=== PATIENT | female | born 1990 | race Caucasian/White ===

== ENCOUNTER 2016-09-13 18:06 | Emergency (ER) | payer MEDICAID ==
--- NOTE | 2016-09-13 18:15 | ER Document Report ---
ED Medical Screen (RME) - General Stated Complaint: BACK PAIN Mode of Arrival: Ambulatory Information source: Patient Notes: Patient presents to the emergency department with right flank pain that radiates to her periumbilical area past 3 months. Reports urinary frequency. Reports history of kidney infections. Reports vomited 2 x today. Denies f/d. No pain on palpation of her abdomen but she does complain of pain with right flank. TRAVEL OUTSIDE OF THE [place] IN LAST 30 DAYS: No - Related Data Allergies/Adverse Reactions: Penicillins Adverse Reaction (Mild, Verified 10/17/15 11:37) Past Medical History - Immunizations Immunizations up to date: Yes Hx Diphtheria, Pertussis, Tetanus Vaccination: Yes
[2016-09-13 18:30] LABS: ABSOLUTE BASOPHILS # (AUTO) 0.1 10^3/uL (0.0-0.2); ABSOLUTE EOSINOPHILS # (AUTO) 0.1 10^3/uL (0.0-0.6); ABSOLUTE LYMPHOCYTES (AUTO) 2.2 10^3/uL (0.5-4.7); ABSOLUTE MONOCYTES (AUTO) 0.5 10^3/uL (0.1-1.4); ABSOLUTE NEUT (AUTO) 5.4 10^3/uL (1.7-8.2); BASOPHILS % (AUTO) 0.7 % (0-2); EOSINOPHILS % (AUTO) 1.8 % (0-6); HEMATOCRIT 36.5 % (36.0-47.0); HEMOGLOBIN 12.7 g/dL (12.0-15.5); HGB HCT DIFFERENCE 1.6; LYMPHOCYTES % (AUTO) 26.2 % (13-45); MEAN CORPUSCULAR HEMOGLOBIN 30.8 pg (27.0-33.4); MEAN CORPUSCULAR HGB CONC 34.8 g/dL (32.0-36.0); MEAN CORPUSCULAR VOLUME 89 fl (80-97); MONOCYTES % (AUTO) 6.1 % (3-13); RED BLOOD COUNT 4.12 10^6/uL (3.72-5.28); RED CELL DISTRIBUTION WIDTH 13.6 % (11.5-14.0); SEGMENTED NEUTROPHILS % (AUTO) 65.2 % (42-78); WHITE BLOOD COUNT 8.2 10^3/uL (4.0-10.5)
[2016-09-13 18:37] LABS: APPEARANCE,URINE SLIGHTLY-CLOUDY; BILIRUBIN,URINE NEGATIVE (NEGATIVE); GLUCOSE, URINE NEGATIVE (NEGATIVE); KETONES,URINE NEGATIVE (NEGATIVE); LEUKOCYTE ESTERASE,URINE TRACE (NEGATIVE); NITRITE,URINE NEGATIVE (NEGATIVE); PROTEIN,URINE NEGATIVE (NEGATIVE); URINE SPECIFIC GRAVITY 1.014; UROBILINOGEN,URINE NEGATIVE mg/dL (<2.0)
[2016-09-13 18:44] LABS: ALANINE AMINOTRANSFERASE 57 U/L (9-52); ALBUMIN 4.4 g/dL (3.5-5.0); ALKALINE PHOSPHATASE 50 U/L (38-126); ANION GAP 11 (5-19); ASPARTATE AMINO TRANSFERASE 27 U/L (14-36); BILIRUBIN,TOTAL 0.6 mg/dL (0.2-1.3); BLOOD UREA NITROGEN 16 mg/dL (7-20); CALCIUM 9.5 mg/dL (8.4-10.2); CARBON DIOXIDE 25 mmol/L (22-30); CHLORIDE 104 mmol/L (98-107); CREATININE RESULT 0.61 mg/dL (0.52-1.25); GLUCOSE 90 mg/dL (75-110); POTASSIUM 4.3 mmol/L (3.6-5.0); SODIUM 139.7 mmol/L (137-145); TOTAL PROTEIN 7.9 g/dL (6.3-8.2)
[2016-09-13] MEDS ORDERED: LIDOCAINE 5% (700 MG) TRANSDERMAL ADH..PATCH TP ONE (20:13)
[2016-09-13] MEDS ORDERED: IBUPROFEN 600 MG TABLET PO ONE (20:13)
--- NOTE | 2016-09-13 20:20 | ER Document Report ---
ED General - General Chief Complaint: Flank Pain Stated Complaint: BACK PAIN Mode of Arrival: Ambulatory Notes: Patient is a 26-year-old female with a history of methadone dependence and chronic pain who presents with 3 months of intermittent right flank pain. Does describe the pain as intermittent, sharp, stabbing pain. Nothing triggers the pain and it does resolve spontaneously. States she's had similar symptoms in the past with "kidney infections". Denies any dysuria, hematuria, or urinary frequency. She has not seeing her primary care physician regarding today's concerns. Denies any associated fever, vomiting, or fatigue. No focal abdominal pain. TRAVEL OUTSIDE OF THE [place] IN LAST 30 DAYS: No - Related Data Allergies/Adverse Reactions: Penicillins Adverse Reaction (Mild, Verified 09/13/16 18:13) Past Medical History - General Information source: Patient - Social History Smoking Status: Current Every Day Smoker Chew tobacco use (# tins/day): No Frequency of alcohol use: None Drug Abuse: Prescription drugs Family History: Reviewed & Not Pertinent Patient has suicidal ideation: No Patient has homicidal ideation: No Renal/ Medical History: Denies: Hx Peritoneal Dialysis - Immunizations Immunizations up to date: Yes Hx Diphtheria, Pertussis, Tetanus Vaccination: Yes Review of Systems - Review of Systems Notes: Constitutional: Negative for fever. HENT: Negative for sore throat. Eyes: Negative for visual changes. Cardiovascular: Negative for chest pain. Respiratory: Negative for shortness of breath. Gastrointestinal: Negative for abdominal pain, vomiting or diarrhea. Positive for right flank pain Genitourinary: Negative for dysuria. Musculoskeletal: Negative for back pain. Skin: Negative for rash. Neurological: Negative for headaches, weakness or numbness. 10 point ROS negative except as marked above and in HPI. Physical Exam - Vital signs Interpretation: Normal Notes: PHYSICAL EXAMINATION: GENERAL: Well-appearing, well-nourished and in no acute distress. HEAD: Atraumatic, normocephalic. EYES: Pupils equal round and reactive to light, extraocular movements intact, sclera anicteric, conjunctiva are normal. ENT: nares patent, oropharynx clear without exudates. Moist mucous membranes. NECK: Normal range of motion, supple without lymphadenopathy LUNGS: Breath sounds clear to auscultation bilaterally and equal. No wheezes rales or rhonchi. HEART: Regular rate and rhythm without murmurs ABDOMEN: Soft, nontender, normoactive bowel sounds. No guarding, no rebound. No masses appreciated. Right CVA tenderness. EXTREMITIES: Normal range of motion, no pitting or edema. No cyanosis. NEUROLOGICAL: No focal neurological deficits. Moves all extremities spontaneously and on command. PSYCH: Normal mood, normal affect. SKIN: Warm, Dry, normal turgor, no rashes or lesions noted. Course - Re-evaluation Re-evalutation: 09/13/16 20:14 Patient presents with 3 months of intermittent right flank pain. Her clinical history and exam does not appear consistent with nephrolithiasis or an acute pyelonephritis. She has no focal abdominal tenderness to suggest an acute appendicitis, ovarian torsion, tubo-ovarian abscess. Her clinical history of 3 months of intermittent symptoms likewise is not consistent with the above diagnoses. Laboratories including a urinalysis and tests are all negative here. Her urine has been sent for culture to ensure that there is no occult infection. I recommended a conservative management as well as primary care follow-up. At this time will discharge with return precautions and follow- up recommendations. Verbal discharge instructions given a the bedside and opportunity for questions given. Medication warnings reviewed. Patient is in agreement with this plan and has verbalized understanding of return precautions and the need for primary care follow-up in the next 24-72 hours. - Laboratory Result Diagrams: 09/13/16 18:15 09/13/16 18:15 Laboratory results interpreted by me: 09/13/16 09/13/16 18:15 18:15 ALT 57 H Ur Leukocyte Esterase TRACE H Discharge - Discharge Clinical Impression: Chronic right flank pain Condition: Good Disposition: HOME, SELF-CARE Additional Instructions: Please follow-up with her primary care doctor in the next several days. Return if worsening pain, fever greater than 101F, pass out, began vomiting, or have any other symptoms that are worrisome to you.
== END 2016-09-13 20:33 | disposition home or self-care (01) ==
LOC: ER 18:06
DX: G89.29 Other chronic pain (principal); R10.9 Unspecified abdominal pain; M54.9 Dorsalgia, unspecified; F11.99 Opioid use, unspecified with unspecified opioid-induced disorder
CPT/HCPCS: 36415; 80053; 81001; 84703; 85025; 87086; 99284

== ENCOUNTER 2017-02-09 17:54 | Emergency (ER) | payer SELFPAY ==
[2017-02-09] MEDS ORDERED: METOCLOPRAMIDE HCL 10 MG TABLET PO ONE (19:20)
--- NOTE | 2017-02-09 19:21 | ER Document Report ---
ED Medical Screen (RME) - General Chief Complaint: Abdominal Pain Stated Complaint: ABDOMINAL PAIN Time Seen by Provider: 02/09/17 19:17 Notes: This 26-year-old female patient comes emergency room complaining of a one-month history of nausea, fatigue, cramping. She reports she began vomiting today and has vomited 3-4 times. LMP was 11/19/2016, but her periods are quite irregular so she does not know if she is . She did not try getting a test from the grocery store or drugstore to check for herself. I have greeted and performed a rapid initial assessment of this patient. A comprehensive ED assessment and evaluation of the patient, analysis of test results and completion of the medical decision making process will be conducted by additional ED providers. TRAVEL OUTSIDE OF THE [place] IN LAST 30 DAYS: No - Related Data Allergies/Adverse Reactions: Penicillins Adverse Reaction (Mild, Verified 02/09/17 18:29) Past Medical History Renal/ Medical History: Denies: Hx Peritoneal Dialysis - Immunizations Immunizations up to date: Yes Hx Diphtheria, Pertussis, Tetanus Vaccination: Yes Physical Exam - Vital signs Vitals: Temp Pulse Resp BP Pulse Ox 97.6 F 87 16 123/71 100 02/09/17 18:22 02/09/17 18:22 02/09/17 18:22 02/09/17 18:22 02/09/17 18:22 Course - Vital Signs Vital signs: Temp Pulse Resp BP Pulse Ox 97.6 F 87 16 123/71 100 02/09/17 18:22 02/09/17 18:22 02/09/17 18:22 02/09/17 18:22 02/09/17 18:22
[2017-02-09 20:18] LABS: APPEARANCE,URINE SLIGHTLY-CLOUDY; BILIRUBIN,URINE NEGATIVE (NEGATIVE); GLUCOSE, URINE NEGATIVE (NEGATIVE); KETONES,URINE NEGATIVE (NEGATIVE); LEUKOCYTE ESTERASE,URINE TRACE (NEGATIVE); NITRITE,URINE NEGATIVE (NEGATIVE); PROTEIN,URINE NEGATIVE (NEGATIVE); URINE SPECIFIC GRAVITY 1.024
--- NOTE | 2017-02-09 23:39 | ER Document Report ---
ED General - General Chief Complaint: Abdominal Pain Stated Complaint: ABDOMINAL PAIN Time Seen by Provider: 02/09/17 19:17 Notes: Patient is a 26-year-old female who presents with complaint of some mild intermittent lower abdominal cramping as well as some nausea and occasional vomiting for 1 month. Her last menstrual period was in November. She says her menstrual periods are usually regular. She has had no abnormal vaginal discharge. No fevers. No other complaints at this time. She has not checked a test. She currently is pain-free. TRAVEL OUTSIDE OF THE [place] IN LAST 30 DAYS: No - Related Data Allergies/Adverse Reactions: Penicillins Adverse Reaction (Mild, Verified 02/09/17 18:29) Past Medical History - Social History Smoking Status: Current Every Day Smoker Frequency of alcohol use: None Drug Abuse: None Family History: Reviewed & Not Pertinent Patient has suicidal ideation: No Patient has homicidal ideation: No Renal/ Medical History: Denies: Hx Peritoneal Dialysis - Immunizations Immunizations up to date: Yes Hx Diphtheria, Pertussis, Tetanus Vaccination: Yes Review of Systems - Review of Systems Notes: My Normal Review Basic REVIEW OF SYSTEMS: CONSTITUTIONAL : Denies fever, chills, or sweats. Denies recent illness. EENT: Denies eye, ear, throat, or mouth pain or symptoms. Denies nasal or sinus congestion. RESPIRATORY: Denies cough, cold, or chest congestion. Denies shortness of breath, difficulty breathing, or wheezing. GASTROINTESTINAL: suprapubic cramping. Denies nausea, vomiting, or diarrhea. GENITOURINARY: Denies difficulty urinating, painful urination, burning, frequency, or blood in urine. FEMALE GENITOURINARY: Denies vaginal bleeding, abnormal or irregular periods. LMP: May MUSCULOSKELETAL: Denies neck or back pain or joint pain or swelling. SKIN: Denies rash or skin lesions. NEUROLOGICAL: Denies altered mental status or loss of consciousness. Denies headache. Denies weakness or paralysis or loss of use of either side. Denies problems with gait or speech. Denies sensory or motor loss. ALL OTHER SYSTEMS REVIEWED AND NEGATIVE. Physical Exam - Vital signs Vitals: Temp Pulse Resp BP Pulse Ox 97.6 F 87 16 123/71 100 02/09/17 18:22 02/09/17 18:22 02/09/17 18:22 02/09/17 18:22 02/09/17 18:22 - Notes Notes: General Appearance: Well nourished, alert, cooperative, no acute distress, no obvious discomfort. Well appearing. Vitals: reviewed, See vital signs table. Head: no swelling or tenderness to the head Eyes: PERRL, EOMI, Conjuctiva clear Lungs: No wheezing, No rales, No rhonci, No accessory muscle use, good air exchange bilaterally. Heart: Normal rate, Regular rythm, No murmur, no rub Abdomen: Normal BS, soft, No rigidity, No abdominal tenderness, No guarding, no rebound, no abdominal masses, no organomegaly Extremities: strength 5/5 in all extremities, good pulses in all extremities, no swelling or tenderness in the extremities, no edema. Skin: warm, dry, appropriate color, no rash Neuro: speech clear, oriented x 3, normal affect, responds appropriately to questions. Course - Re-evaluation Re-evalutation: 02/10/17 06:36 Patient's symptoms are likely related to her . I will place on Reglan. I did do bedside ultrasound showed all a pole in the uterus. Cannot yet see a heart rate. I gave her information for women's health for follow-up. I will also write prescription for vitamins and Reglan. Patient encouraged to return to ER if she has any recurrent pain, any vaginal bleeding, fevers, or feels unwell. - Vital Signs Vital signs: Temp Pulse Resp BP Pulse Ox 98.0 F 85 16 120/68 100 02/09/17 23:46 02/09/17 23:46 02/09/17 23:46 02/09/17 23:46 02/09/17 23:46 - Laboratory Laboratory results interpreted by me: 02/09/17 02/09/17 19:47 19:47 Urine Urobilinogen 2.0 H Ur Leukocyte Esterase TRACE H Urine HCG, Qual POSITIVE H Discharge - Discharge Clinical Impression: Qualifiers: Weeks of gestation: less than 8 weeks Qualified Code(s): Z3A.01 - Less than 8 weeks gestation of Vomiting Qualifiers: Vomiting type: unspecified Vomiting Intractability: non-intractable Nausea presence: with nausea Qualified Code(s): R11.2 - Nausea with vomiting, unspecified Condition: Good Disposition: HOME, SELF-CARE Additional Instructions: You are . This is likely what is causing your nausea for the last month as well as your intermittent cramping. Please take vitamins. Please take the nausea medicine as prescribed. Please return to the ER immediately if you have abdominal pain that is worsening, any vaginal bleeding or abnormal discharge, fevers, or if you feel unwell in any way. Please call the women's health clinic ( Dr. Willson) to make a close follow-up appointment. Prescriptions: Metoclopramide HCl [Reglan 10 mg Tablet] 1 tab PO ASDIR PRN #25 tablet PRN Reason: Vit W-Ca,Fe,FA(<1 mg) [ Vitamins] 1 each PO DAILY #30 tablet Referrals: CARMEN WILLSON MD [ACTIVE STAFF] - Follow up in 3-5 days
[2017-02-10 00:40] VITALS: BP 120/68
== END 2017-02-09 23:46 | disposition home or self-care (01) ==
LOC: ER 17:54
DX: O21.9 Vomiting of pregnancy, unspecified (principal); O26.891 Other specified pregnancy related conditions, first trimester; R10.30 Lower abdominal pain, unspecified; O99.331 Smoking (tobacco) complicating pregnancy, first trimester; Z3A.01 Less than 8 weeks gestation of pregnancy
CPT/HCPCS: 81001; 81025; 99284

== ENCOUNTER → 2017-02-23 | Outpatient (CLI) | payer SELFPAY ==
--- NOTE | 2017-02-23 16:03 | RADIOLOGY REPORT (SQ) ---
EXAM DESCRIPTION: U/S [id number] TRNABD 1GES W/ODOP COMPLETED DATE/TIME: 02/23/2017 3:35 pm REASON FOR STUDY: ENCOUNTER FOR SUPERVISION OF OTHER NORMAL , FIRST TRIMESTER Z34.81 ENCOU NTER FOR SUPRVSN OF NORMAL , FIRST TRIM COMPARISON: None. TECHNIQUE: Transabdominal static and realtime grayscale images acquired of the pelvis. Additional se lected spectral and color Doppler images recorded. All images stored on PACs. bHCG: Not available. LIMITATIONS: None. FINDINGS: FETUS: Living intrauterine . EGA: 9 weeks 3 days DAVID: 09/25/2017 FHR: 173 beats per minute. SUBCHORIONIC BLEED: No. SIZE OF BLEED: Not applicable. UTERUS: No masses. No anomalies. CERVICAL LENGTH: 2.9 cm. Closed. RIGHT ADNEXA: Normal ovary with normal vascular flow. No adnexal free fluid. No adnexal masses. LEFT ADNEXA: Normal ovary with normal vascular flow. No adnexal free fluid. No adnexal masses. FREE FLUID: None. OTHER: No other significant finding. IMPRESSION: LIVING INTRAUTERINE . EGA 9 weeks 3 days. Trimester of : First - 0 to 13 weeks. TECHNICAL DOCUMENTATION: JOB ID: [id number] [employer]- All Rights Reserved
== END ==
LOC: RAD 14:50
PROVIDERS: ATTEND Nurse Practitioner Women's Health
DX: Z34.81 Encounter for supervision of other normal pregnancy, first trimester (principal)
CPT/HCPCS: 76801

== ENCOUNTER 2017-09-01 11:54 | Outpatient (CLI) | payer MEDICAID ==
--- NOTE | 2017-09-01 12:29 | Non Stress Test Report ---
Non Stress Test Datetime Report Generated by CPN: 09/01/2017 12:29 DEMOGRAPHIC EGA NST: 36.4 INDICATION Indication for Study: Ordered by Provider MONITORING Monitor Explained: Monitor Explained; Test Explained; Patient Verbalized Understanding Time on Monitor: 09/01/2017 12:04 Time off Monitor: 09/01/2017 12:25 NST Duration: 21 NST INTERVENTIONS NST Interventions: PO Hydration; Reposition Patient Physician Notified NST: J Nichole CNM BABY A: [id number] BABY A Movement : Present Contraction Frequency : irr FHR Baseline : 120 Accelerations : 15X15 Decelerations : None Variability : Moderate 6-25bpm NST Review: Meets Criteria for Reactive NST NST Review and Verified By : Yesika Cartagena RNC NST Results: Reactive NST REPORT Report Trigger: Send Report
== END 2017-09-01 12:30 | disposition home or self-care (01) ==
LOC: LC 11:54
PROVIDERS: ATTEND Obstetrics & Gynecology
PROC: 4A1HXCZ Monitoring of Products of Conception, Cardiac Rate, External Approach (ICD-10-PCS; principal; 2017-09-01)
DX: O47.03 False labor before 37 completed weeks of gestation, third trimester (principal); Z3A.36 36 weeks gestation of pregnancy
CPT/HCPCS: 59025

== ENCOUNTER 2017-09-08 10:48 | Outpatient (CLI) | payer MEDICAID ==
--- NOTE | 2017-09-08 11:33 | Non Stress Test Report ---
Non Stress Test Datetime Report Generated by CPN: 09/08/2017 11:33 DEMOGRAPHIC EGA NST: 37.4 INDICATION Indication for Study: Other Indication for Study (NST) Other: methadone use MONITORING Monitor Explained: Monitor Explained; Test Explained; Patient Verbalized Understanding Time on Monitor: 09/08/2017 10:58 Time off Monitor: 09/08/2017 11:19 NST Duration: 21 NST INTERVENTIONS NST Interventions: Reposition Patient BABY A: [id number] BABY A Movement : Present Contraction Frequency : 10 FHR Baseline : 120 Accelerations : 15X15 Decelerations : None Variability : Moderate 6-25bpm NST Review: Meets Criteria for Reactive NST NST Review and Verified By : D Bellavance RNC NST Results: Reactive NST REPORT Report Trigger: Send Report
== END 2017-09-08 11:21 | disposition home or self-care (01) ==
LOC: LC 10:48
PROVIDERS: ATTEND Student in an Organized Health Care Education/Training Program
PROC: 4A1HXCZ Monitoring of Products of Conception, Cardiac Rate, External Approach (ICD-10-PCS; principal; 2017-09-08)
DX: O99.323 Drug use complicating pregnancy, third trimester (principal); F11.90 Opioid use, unspecified, uncomplicated; Z3A.37 37 weeks gestation of pregnancy
CPT/HCPCS: 59025

== ENCOUNTER 2017-09-26 09:30 | Outpatient (CLI) | payer MEDICAID | END 2017-09-26 10:23 | disposition home or self-care (01) | LOC: LC 09:30 | PROVIDERS: ATTEND Obstetrics & Gynecology Gynecology | PROC: 4A1HXCZ Monitoring of Products of Conception, Cardiac Rate, External Approach (ICD-10-PCS; principal; 2017-09-26) | DX: O99.323 Drug use complicating pregnancy, third trimester (principal); F11.90 Opioid use, unspecified, uncomplicated; O48.0 Post-term pregnancy; Z3A.40 40 weeks gestation of pregnancy | CPT/HCPCS: 59025 ==

== ENCOUNTER 2017-09-27 06:52 | Inpatient (IN) | payer MEDICAID ==
[2017-09-27] MEDS ORDERED: RINGERS SOLUTION,LACTATED 300 ML IV ONE (08:17)
[2017-09-27] MEDS ORDERED: OXYTOCIN/NORMAL SALINE 20 UNIT/1,000 ML RTUINJ IV PRN ×3 (08:17→14:22)
[2017-09-27] MEDS ORDERED: MISOPROSTOL 0.2 MG TABLET ONE (08:41)
[2017-09-27] MEDS ORDERED: OXYTOCIN/NORMAL SALINE 20 UNIT/1,000 ML RTUINJ ONE (08:42)
[2017-09-27] MEDS ORDERED: LIDOCAINE 1% INJ-PF (10 MG/ML) 30 ML SDV ONE (08:42)
[2017-09-27 08:48] LABS: APPEARANCE,URINE CLEAR; BILIRUBIN,URINE NEGATIVE (NEGATIVE); COLOR,URINE YELLOW; GLUCOSE, URINE NEGATIVE (NEGATIVE); KETONES,URINE NEGATIVE (NEGATIVE); LEUKOCYTE ESTERASE,URINE TRACE (NEGATIVE); NITRITE,URINE NEGATIVE (NEGATIVE); PROTEIN,URINE NEGATIVE (NEGATIVE); URINE SPECIFIC GRAVITY 1.012; UROBILINOGEN,URINE NEGATIVE mg/dL (<2.0)
[2017-09-27 09:05] LABS: ABSOLUTE BASOPHILS # (AUTO) 0.1 10^3/uL (0.0-0.2); ABSOLUTE EOSINOPHILS # (AUTO) 0.2 10^3/uL (0.0-0.6); ABSOLUTE LYMPHOCYTES (AUTO) 3.2 10^3/uL (0.5-4.7); ABSOLUTE MONOCYTES (AUTO) 0.7 10^3/uL (0.1-1.4); BASOPHILS % (AUTO) 0.8 % (0-2); EOSINOPHILS % (AUTO) 1.9 % (0-6); HEMATOCRIT 35.3 % (36.0-47.0); HEMOGLOBIN 12.3 g/dL (12.0-15.5); LYMPHOCYTES % (AUTO) 34.8 % (13-45); MEAN CORPUSCULAR HEMOGLOBIN 31.7 pg (27.0-33.4); MEAN CORPUSCULAR HGB CONC 34.7 g/dL (32.0-36.0); MEAN CORPUSCULAR VOLUME 91 fl (80-97); MONOCYTES % (AUTO) 7.4 % (3-13); PLATELET COUNT 234 10^3/uL (150-450); RED BLOOD COUNT 3.87 10^6/uL (3.72-5.28); RED CELL DISTRIBUTION WIDTH 13.2 % (11.5-14.0); SEGMENTED NEUTROPHILS % (AUTO) 55.1 % (42-78); TOTAL CELLS COUNTED % (AUTO) 100 %; WHITE BLOOD COUNT 9.1 10^3/uL (4.0-10.5)
[2017-09-27 09:06] LABS: URINE AMPHETAMINES SCREEN NEGATIVE; URINE BARBITURATES SCREEN NEGATIVE; URINE BENZODIAZEPINES SCREEN NEGATIVE; URINE COCAINE SCREEN NEGATIVE; URINE MARIJUANA (THC) SCREEN NEGATIVE; URINE PHENCYCLIDINE SCREEN NEGATIVE
[2017-09-27 09:11] LABS: URINE METHADONE SCREEN UNCONFIRMED POSITIVE
[2017-09-27] MEDS ORDERED: EPHEDRINE SULFATE INJ 50 MG/1 ML AMPULE ONE (09:18)
[2017-09-27] MEDS ORDERED: BUPIVACAINE HCL 0.25 % INJ/PF (2.5 MG/1 ML) 30 ML VIAL ONE (09:18)
[2017-09-27] MEDS ORDERED: FENTANYL/BUPIVACAINE/NS/PF 200 MCG/100 ML RTUINJ EPI ONE (09:18)
[2017-09-27] MEDS: RINGERS SOLUTION,LACTATED 1,000 ML IV PRN ×3 (10:24→14:52)
[2017-09-27] MEDS ORDERED: DIPHENHYDRAMINE HCL 25 MG CAPSULE PO PRN (14:22)
[2017-09-27] MEDS ORDERED: PROMETHAZINE HCL INJ 25 MG/1 ML VIAL IV PRN (14:22)
[2017-09-27] MEDS ORDERED: BENZOCAINE/MENTHOL AEROSOL SPRAY 56 ML TOP PRN (14:22)
[2017-09-27] MEDS ORDERED: NA PHOS,M-B/NA PHOS,DI-BA (ADULT) 133 ML ENEMA PR PRN (14:22)
[2017-09-27] MEDS ORDERED: PROMETHAZINE HCL 25 MG TABLET PO PRN (14:22)
[2017-09-27] MEDS ORDERED: MAGNESIUM HYDROXIDE SUSP 30 ML UDCUP PO PRN (14:22)
[2017-09-27] MEDS ORDERED: DIBUCAINE 1% OINTMENT 28 GM TP PRN (14:22)
[2017-09-27] MEDS ORDERED: DIPH/PERTUSS(ACELL)/TETANUS VAC/PF 0.5 ML SYR (>=10YO) IM PRN (14:22)
[2017-09-27] MEDS ORDERED: GLYCERIN/WITCH HAZEL LEAF 1 EACH MED..PAD TP PRN (14:22)
[2017-09-27] MEDS ORDERED: PROMETHAZINE HCL 25 MG SUPP.RECT PR PRN (14:22)
[2017-09-27] MEDS ORDERED: MEASLES,MUMPS&RUBELLA VACC/PF 0.5 ML VIAL SUBCUT PRN (14:22)
[2017-09-27] MEDS ORDERED: PSEUDOEPHEDRINE HCL 30 MG TABLET PO PRN (14:22)
--- NOTE | 2017-09-27 14:29 | Warning Signs in Babies ---
VOD Warning Signs Datetime Report Generated by N: 09/27/2017 14:28 VOD#608 -Warning Signs in Babies: Viewed with Parent(s)/Family (09/27/2017 14:23:Reta Ahumada RN)
--- NOTE | 2017-09-27 17:57 | Delivery Summary ---
Del Sum A-C Datetime Report Generated by CPN: 09/27/2017 17:56 DELIVERY PERSONNEL DELIVERY PERSONNEL: [id number] Delivery Doctor:: Linda Menjivar CNM Nurse Terrazzo Polisher Helper Certified:: Linda Menjivar CNM Labor and Delivery Nurse:: Reta Ahumada RNhealthcare technician Nurse:: PATRIC Coon Maintenance Mechanic Millwright:: Reta Ahumada RN Nursery Nurse:: Sheela Grayson RN Student Observers:: [facility] Assistant Surveyor/ROAD BOSS: Jyoti Davies CNA II MATERNAL INFORMATION Delivery Anesthesia: Epidural Medications After Delivery: Pitocin Bolus-Please Comment Meds After Delivery Comment: 20 units in 1000 ml bolusing after delivery of placenta Maternal Complications: Other Other Maternal Complications: hep c/post term/hx drug abuse on methadone Provider Comments: MARISA VIABLE FEMALE WITH SPONTANEOUS CRY. CORD DOUBLE CLAMPED AND CUT. SPONTANEOUS PLACENTA INTACT WITH 3VC. NO LACERATIONS LABOR SUMMARY EDC: 09/25/2017 00:00 No. Babies in Womb: 1 Attempted: No Labor Anesthesia: Epidural LABOR INFORMATION Reason for Induction: Postterm Reason for Induction- Other: hep c hx drug abuse with methadone use Onset of Labor: 09/27/2017 10:00 Complete Dilatation: 09/27/2017 13:59 Oxytocin: Induction Group B Beta Strep: neg Antibiotics # of Doses: 0 Antibiotics Time of Last Dose: n/a Name of Antibiotic Given: n/a Steroids Given: None Reason Steroids Not Administered: Not Applicable MEMBRANES Membranes Rupture Method: Artificial Rupture of Membranes: 09/27/2017 10:22 Length of Rupture (hr): 3.78 Amniotic Fluid Color: Clear Amniotic Fluid Amount: Moderate Amniotic Fluid Odor: None STAGES OF LABOR Stage 1 hr: 3 Stage 1 min: 59 Stage 2 hr: 0 Stage 2 min: 10 Stage 3 hr: 0 Stage 3 min: 4 Total Time in Labor hr: 4 Total Time in Labor min: 13 VAGINAL DELIVERY Episiotomy: None Laceration #1: None Laceration Extension #1: N/A Laceration Repair: Not Applicable Sponge Count Correct: Yes Sharps Count Correct: N/A CSECTION DELIVERY Primary Indication: N/A Secondary Indication: N/A CSection Incidence: N/A Labor: N/A Elective: N/A CSection Incision: N/A BABY A INFORMATION Delivery Date/Time: 09/27/2017 14:09 Method of Delivery: Vaginal Born in Route : No : N/A Forceps: N/A Vacuum Extraction: N/A Shoulder Dystocia : No PRESENTATION/POSITION BABY A Presentation: Cephalic Cephalic Presentation: Vertex Vertex Position: Left Occipital Anterior Breech Presentation: N/A PLACENTA INFORMATION BABY A Placenta Delivery Time : 09/27/2017 14:13 Placenta Method of Delivery: Spontaneous Placenta Status: Delivered SCORES BABY A Heart Rate 1 min: >100 bpm Resp Effort 1 min: Good Cry Reflex Irritability 1 min: Cough or Sneeze or Pulls Away Muscle Tone 1 min: Active Motion Color 1 min: Body [place], Extremities Blue Resuscitation Effort 1 min: Tactile Stimulation SCORE 1 MIN: 9 Heart Rate 5 min: >100 bpm Resp Effort 5 min: Good Cry Reflex Irritability 5 min: Cough or Sneeze or Pulls Away Muscle Tone 5 min: Active Motion Color 5 min: Body [place], Extremities Blue Resuscitation Effort 5 min: Tactile Stimulation SCORE 5 MIN: 9 INFORMATION BABY A Gestational Age at Delivery: 40.2 Gestational Status: Full Term- 39- 40.6 Weeks Outcome : Liveborn Condition : Stable Sex: Female IDENTIFICATION BABY A Verification Date/Time: 09/27/2017 14:27 ID Band Number: [id number] Mother's Name Verified: Yes Infant RN Verifying Infant: BL ROULUND, RN Additional Verifying Personnel: D [facility], C WEIGHT/LENGTH BABY A Infant Birthweight (gm): 3410 Infant Weight (lb): 7 Weight (oz): 8 Length (in): 20.50 Infant Length (cm): 52.07 CORD INFORMATION BABY A No. Cord Vessels: 3 Nuchal Cord : N/A Cord Blood Taken: Yes-For Eval (Mom's Blood Type - or O+) Infant Suction: None ASSESSMENT BABY A Complications: Multiple Variable Decels Physical Findings at Delivery: Within Normal Limits Respirations: Appears Normal Skin to Skin: Yes Seed Cutter/ALS Called : Yes Care By: A Delmore RN Transferred To: Remains with Mother BABY B INFORMATION : N/A SIGNATURES Assignment: Myriam Parker MD Signature: with User ID: [email or web address] : with User ID: [email or web address] : I was personally available for consultation and serving as supervising physician for the MLP.
[2017-09-27] MEDS: DOCUSATE SODIUM 100 MG CAPSULE PO SCH (17:58)
[2017-09-27] MEDS: IBUPROFEN 800 MG TABLET PO SCH (21:52)
[2017-09-27] MEDS: FAMOTIDINE 20 MG TABLET PO SCH (21:53)
[2017-09-28] MEDS: IBUPROFEN 800 MG TABLET PO SCH ×3 (05:06→21:47)
[2017-09-28 06:41] LABS: HEMATOCRIT 34.1 % (36.0-47.0); HEMOGLOBIN 11.6 g/dL (12.0-15.5); MEAN CORPUSCULAR HEMOGLOBIN 31.4 pg (27.0-33.4); MEAN CORPUSCULAR HGB CONC 34.1 g/dL (32.0-36.0); MEAN CORPUSCULAR VOLUME 92 fl (80-97); PLATELET COUNT 226 10^3/uL (150-450); RED CELL DISTRIBUTION WIDTH 13.3 % (11.5-14.0); WHITE BLOOD COUNT 14.4 10^3/uL (4.0-10.5)
[2017-09-28] MEDS ORDERED: METHADONE HCL 10 MG TABLET ONE (08:05)
[2017-09-28] MEDS: PRENATAL VITAMIN W DHA CAPSULE PO SCH (09:59)
[2017-09-28] MEDS: DOCUSATE SODIUM 100 MG CAPSULE PO SCH ×3 (10:00→17:54)
[2017-09-28] MEDS: SENNOSIDES/DOCUSATE 8.6-50 MG 1 EACH TABLET PO SCH (10:00)
[2017-09-28] MEDS: FAMOTIDINE 20 MG TABLET PO SCH ×2 (10:00→21:46)
--- NOTE | 2017-09-28 10:21 | PDOC PROGRESS REPORT ---
Subjective-OB Progress Note for:: 09/28/17 Subjective: s/p vaginal delivery on methadone 85 mg po bonding well with / industry consultant at bedside pain well managed [id number] mild lochia anticipate d/c in AM Physical Exam (OB) Vital Signs: Temp Pulse Resp BP Pulse Ox 98.0 F 75 16 114/73 100 09/28/17 07:42 09/28/17 07:42 09/28/17 07:42 09/28/17 07:42 09/28/17 07:42 Intake & Output 09/27/17 09/28/17 09/29/17 06:59 06:59 06:59 Weight 65.8 kg - PIH/Pre-Eclampsia DTR's: 1 + Clonus: Negative Headache: Absent Epigastric Pain: No Visual Changes: No - Lochia Lochia Amount: Small 10-25 ml Lochia Color: Rubra/Red - Abdomen Description: Soft, Round Hernia Present: No Fundal Description: Firm, Midline Fundal Height: u/u - u/2 Objective-Diagnostic Laboratory: 09/28/17 06:27 09/28/17 06:27 WBC 14.4 H RBC 3.70 L Hgb 11.6 L Hct 34.1 L MCV 92 MCH 31.4 MCHC 34.1 RDW 13.3 Plt Count 226
[2017-09-29] MEDS: IBUPROFEN 800 MG TABLET PO SCH ×2 (05:57→13:03)
[2017-09-29] MEDS ORDERED: METHADONE HCL 10 MG TABLET PO ONE (08:30)
[2017-09-29 08:52] VITALS: BP 115/76
[2017-09-29] MEDS: PRENATAL VITAMIN W DHA CAPSULE PO SCH (09:14)
[2017-09-29] MEDS: SENNOSIDES/DOCUSATE 8.6-50 MG 1 EACH TABLET PO SCH (09:14)
[2017-09-29] MEDS: DOCUSATE SODIUM 100 MG CAPSULE PO SCH ×3 (09:14→17:47)
[2017-09-29] MEDS: FAMOTIDINE 20 MG TABLET PO SCH (09:14)
--- NOTE | 2017-09-29 13:08 | PDOC DISCHARGE SUMMARY ---
Final Diagnosis Discharge Date: 09/29/17 - Final Diagnosis (1) Anemia due to acute blood loss Is this a current diagnosis for this admission?: Yes (2) Cocaine abuse Is this a current diagnosis for this admission?: Yes (3) Methadone dependence Is this a current diagnosis for this admission?: Yes (4) Normal vaginal delivery Is this a current diagnosis for this admission?: Yes (5) PCR positive for hepatitis C virus Is this a current diagnosis for this admission?: Yes (6) Smoker Is this a current diagnosis for this admission?: Yes Discharge Data - Discharge Medication Prescriptions: Docusate Sodium [Colace 100 mg Capsule] 100 mg PO TID #60 capsule Ibuprofen [Motrin 800 mg Tablet] 800 mg PO Q8 #60 tablet Home Medications: Methadone HCl [Dolophine 10 mg Tablet] 85 mg PO DAILY 09/12/15 Vit Calc,Iron,Folic [ Vitamins] 1 each PO DAILY #30 tablet 03/20 Docusate Sodium [Colace 100 mg Capsule] 100 mg PO TID #60 capsule 09/29/17 Ibuprofen [Motrin 800 mg Tablet] 800 mg PO Q8 #60 tablet 09/29/17 Gestational Age: 40.2 Reason(s) for Admission: Onset of Labor - maternal methadone tx, Induction of Labor Procedures: NST Intrapartum Procedure(s): Spontaneous Vaginal Delivery - Data Baby 1 Female at 1 minute: 9 at 5 minutes: 9 Weight: 3410 kg Home with Mother: Yes Complications: No - maternal methadone - Diagnosis Test Laboratory: Temp Pulse Resp BP Pulse Ox 97.5 F 66 17 115/76 100 09/29/17 07:38 09/29/17 07:38 09/29/17 07:38 09/29/17 07:38 09/29/17 07:38 09/27/17 09/27/17 09/28/17 08:20 08:51 06:27 RBC 3.87 3.70 L Hgb 12.3 11.6 L Hct 35.3 L 34.1 L Urine Opiates Screen NEGATIVE - Discharge information/Instructions Discharge Activity: Activity As Tolerated, Pelvic Rest, No tub bath Discharge Diet: Regular Disposition: HOME, SELF-CARE Follow up with: [facility] in: 1, Weeks - 1 week f/u on methadone
== END 2017-09-29 18:35 | disposition home or self-care (01) | DRG 774 ==
LOC: LR 06:52 → 2S 16:33
PROVIDERS: ADMIT Obstetrics & Gynecology; ATTEND Obstetrics & Gynecology
PROC: 10E0XZZ Delivery of Products of Conception, External Approach (ICD-10-PCS; principal; 2017-09-27)
PROC: 3E0234Z Introduction of Serum, Toxoid and Vaccine into Muscle, Percutaneous Approach (ICD-10-PCS; 2017-09-29)
DX: O48.0 Post-term pregnancy (principal); O99.834 Other infection carrier state complicating childbirth; O99.324 Drug use complicating childbirth; F11.20 Opioid dependence, uncomplicated; D62 Acute posthemorrhagic anemia; O76 Abnormality in fetal heart rate and rhythm complicating labor and delivery; O99.334 Smoking (tobacco) complicating childbirth; F17.210 Nicotine dependence, cigarettes, uncomplicated; B18.2 Chronic viral hepatitis C; F14.11 Cocaine abuse, in remission; O99.02 Anemia complicating childbirth; Z3A.40 40 weeks gestation of pregnancy; Z37.0 Single live birth; Z23 Encounter for immunization; Z14.1 Cystic fibrosis carrier
CPT/HCPCS: 36415; 80307; 81005; 85025; 85027; 86592; 86850; 86900; 86901; 90707; 94760; J2590; J3490

== ENCOUNTER 2017-12-11 08:35 | Emergency (ER) | payer SELFPAY ==
[2017-12-11 08:40] VITALS: BP 110/70
--- NOTE | 2017-12-11 09:04 | ER Document Report ---
HPI - HPI Patient complains to provider of: Dental pain Onset: Other - 2 weeks Onset/Duration: Gradual, Persistent Pain Level: 5 Context: 27-year-old female complaining of dental pain for several weeks lower left where there is a hole in her tooth. It has gotten worse and radiating to her ear the past few days. She takes methadone 83 mg per day and she was out smoking a cigarette when we tried to find her initially. Associated Symptoms: None Exacerbated by: Denies Relieved by: Denies Similar symptoms previously: Yes Recently seen / treated by doctor: No - ROS ROS below otherwise negative: Yes Systems Reviewed and Negative: Yes All other systems reviewed and negative Past Medical History - General Information source: Patient - Social History Smoking Status: Current Every Day Smoker Frequency of alcohol use: None Drug Abuse: None Lives with: Family Family History: Reviewed & Not Pertinent - Medical History Medical History: Negative Renal/ Medical History: Denies: Hx Peritoneal Dialysis Surgical Hx: Negative - Immunizations Immunizations up to date: Yes Hx Diphtheria, Pertussis, Tetanus Vaccination: Yes Vertical Provider Document - CONSTITUTIONAL Agree With Documented VS: Yes Exam Limitations: No Limitations General Appearance: No Apparent Distress - INFECTION CONTROL TRAVEL OUTSIDE OF THE [place] IN LAST 30 DAYS: No - HEENT HEENT: Normocephalic. negative: Conjuctival Injection Notes: Dental decay second molar lower left with some gingival inflammation no abscess. - NECK Neck: Supple. negative: Lymphadenopathy-Left, Lymphadenopathy-Right - NEURO Level of Consciousness: Awake - DERM Integumentary: Warm Course - Vital Signs Vital signs: Temp Pulse Resp BP Pulse Ox 97.8 F 97 16 110/70 97 12/11/17 08:39 12/11/17 08:39 12/11/17 08:39 12/11/17 08:39 12/11/17 08:39 Discharge - Discharge Clinical Impression: Dental pain and decay Condition: Good Disposition: HOME, SELF-CARE Instructions: Toothache (OM), Dentist, Warm Packs (OM), Penicillin V K (OM) Additional Instructions: Warm compress Lidocaine to numb the area Penicillin since you are not allergic to it See the dentist Prescriptions: Penicillin V Potassium [Penicillin Vk 500 mg Tablet] 500 mg PO QID #40 tablet Referrals: CALEB MEDRANO MD [Primary Care Provider] - Follow up as needed
[2017-12-11] MEDS ORDERED: LIDOCAINE 2% VISCOUS SOLN 20 ML UDCUP PO ONE (09:05)
== END 2017-12-11 09:30 | disposition home or self-care (01) ==
LOC: ER 08:35
DX: K02.9 Dental caries, unspecified (principal); K08.89 Other specified disorders of teeth and supporting structures; K05.10 Chronic gingivitis, plaque induced; Z79.891 Long term (current) use of opiate analgesic; F17.210 Nicotine dependence, cigarettes, uncomplicated
CPT/HCPCS: 99282; J3490

== ENCOUNTER → 2019-12-04 | Outpatient (CLI) | payer SELFPAY ==
--- NOTE | 2019-12-04 10:06 | RADIOLOGY REPORT (SQ) ---
EXAM DESCRIPTION: U/S [id number] TRNABD 1GES W/ODOP IMAGES COMPLETED DATE/TIME: 12/04/2019 9:21 am REASON FOR STUDY: Z34.81 ENCOUNTER FOR SUPRVSN OF NORMAL , FIRST TRIMESTER Z34.81 ENCOUNTE R FOR SUPRVSN OF NORMAL , FIRST TRIM COMPARISON: None. TECHNIQUE: Transabdominal static and realtime grayscale images acquired of the pelvis. Additional se lected spectral and color Doppler images recorded. All images stored on PACs. bHCG: Not applicable. CLINICAL DATES: 8 week 6 day. LIMITATIONS: None. FINDINGS: FETUS: Single Living intrauterine . ULTRASOUND EGA: 7 week 5 day. ULTRASOUND DAVID: 07/17/2020. EFW: Not applicable less than 20 weeks. CRL: 1.42 cm. FHR: 145 beats per minute. SURVEY: No visualized anomalies. AMNIOTIC FLUID: Adequate amount. PLACENTA: Not yet developed due to early gestation. SUBCHORIONIC BLEED: Yes. SIZE OF BLEED: 0.3 x 1.3 x 1.6 cm. UTERUS: No masses. No anomalies. CERVICAL LENGTH: 2.1 cm. Closed. RIGHT ADNEXA: Normal ovary with normal vascular flow. No adnexal free fluid. No adnexal masses. LEFT ADNEXA: Ovary not identified due to poor acoustical window. No adnexal free fluid. No adnexal masses. FREE FLUID: None. OTHER: No other significant finding. IMPRESSION: LIVING INTRAUTERINE . EGA 7 WEEK 5 DAY. SUBCHORIONIC BLEED. Trimester of : First trimester - 0 to 13 weeks. TECHNICAL DOCUMENTATION: JOB ID: [id number] [facility]- All Rights Reserved rev-11/18 Reading location - IP/workstation name: [email or web address]
== END ==
LOC: RAD 08:49
PROVIDERS: ATTEND Midwife
DX: Z34.81 Encounter for supervision of other normal pregnancy, first trimester (principal); Z3A.08 8 weeks gestation of pregnancy
CPT/HCPCS: 76801

== ENCOUNTER 2020-06-20 10:18 | Outpatient (CLI) | payer MEDICAID ==
--- NOTE | 2020-06-20 12:13 | RADIOLOGY REPORT (SQ) ---
EXAM DESCRIPTION: U/S PROFILE W/O STRESS IMAGES COMPLETED DATE/TIME: 06/20/2020 12:03 pm REASON FOR STUDY: reassurance of wellbeing COMPARISON: 12/04/2019 TECHNIQUE: Limited londono-scale realtime and static images of the fetus to measure specified parameter s. LIMITATIONS: None. FINDINGS: HEART RATE: 136 beats per minute. BALTA: 14.5 cm. LVP: 5.1 x 8.1 cm. BREATHING MOVEMENT: 2 points. MOVEMENT: 2 points. POSTURE AND TONE: 0 points. QUALITATIVE BALTA: 2 points. OTHER: No other significant finding. IMPRESSION: BIOPHYSICAL PROFILE: 12/09. Trimester of : Third - 28 weeks to delivery COMMENT: BREATHING MOVEMENTS: 2 POINTS: PRESENT 0 POINTS: ABSENT MOTION: 2 POINTS: PRESENT 0 POINTS: ABSENT TONE: 2 POINTS: PRESENT 0 POINTS: ABSENT AMNIOTIC FLUID VOLUME: 2 POINTS: LARGEST POCKET GREATER THAN 2 CM DEPTH. 0 POINTS: NO POCKET OF 2 CM. TECHNICAL DOCUMENTATION: JOB ID: [id number] 2010 [employer]- All Rights Reserved Reading location - IP/workstation name: [email or web address]
--- NOTE | 2020-06-20 13:05 | Non Stress Test Report ---
Non Stress Test Datetime Report Generated by CPN: 06/20/2020 13:05 DEMOGRAPHIC Test Number: 1 EGA NST: 36.1 INDICATION Indication for Study (NST) Other: repeat NST sent from office VITAL SIGNS Temperature - NST: 98.3 Pulse - NST: 90 RESP - NST: 18 NBPSYS NST: 93 NBPDIA NST: 54 MONITORING Monitor Explained: Monitor Explained; Test Explained; Patient Verbalized Understanding Time on Monitor: 06/20/2020 12:32 Time off Monitor: 06/20/2020 12:56 NST Duration: 24 NST INTERVENTIONS NST Interventions: PO Hydration; Reposition Patient Physician Notified NST: A Menjivar CNM BABY A: [id number] BABY A Movement : Present Contraction Frequency : irritability FHR Baseline : 115 Accelerations : 15X15 Decelerations : None Variability : Moderate 6-25bpm NST Review: Meets Criteria for Reactive NST NST Review and Verified By : Jeannie Gipson RN NST Results: Reactive NST REPORT Report Trigger: Send Report
== END 2020-06-20 13:01 | disposition home or self-care (01) ==
LOC: LC 10:18
PROVIDERS: ATTEND Student in an Organized Health Care Education/Training Program
DX: Z34.93 Encounter for supervision of normal pregnancy, unspecified, third trimester (principal); Z3A.36 36 weeks gestation of pregnancy
CPT/HCPCS: 59025; 76819

== ENCOUNTER 2020-06-24 16:45 | Outpatient (CLI) | payer MEDICAID ==
[2020-06-24] MEDS: HYDROXYZINE PAMOATE 50 MG CAPSULE PO ONE (17:33)
[2020-06-24] MEDS: HYDROXYZINE PAMOATE 50 MG CAPSULE ONE (17:33)
--- NOTE | 2020-06-24 18:17 | Non Stress Test Report ---
Non Stress Test Datetime Report Generated by CPN: 06/24/2020 18:16 DEMOGRAPHIC EGA NST: 36.5 INDICATION Indication for Study (NST) Other: IUP at 36.5; Not on labor VITAL SIGNS Temperature - NST: 97.1 Pulse - NST: 94 RESP - NST: 18 NBPSYS NST: 101 NBPDIA NST: 59 MONITORING Monitor Explained: Monitor Explained; Test Explained; Patient Verbalized Understanding Time on Monitor: 06/24/2020 16:55 Time off Monitor: 06/24/2020 17:59 NST Duration: 64 NST INTERVENTIONS NST Interventions: PO Hydration Physician Notified NST: Dr. Madhav BABY A: [id number] BABY A Movement : Present Contraction Frequency : Irreg FHR Baseline : 135 Accelerations : Prolonged Decelerations : None Variability : Moderate 6-25bpm NST Review: Meets Criteria for Reactive NST NST Review and Verified By : Jeannie Gipson RN NST Results: Reactive NST REPORT Report Trigger: Send Report
[2020-06-24 21:17] LABS: APPEARANCE,URINE SLIGHTLY-CLOUDY; BILIRUBIN,URINE NEGATIVE (NEGATIVE); COLOR,URINE AMBER; GLUCOSE, URINE NEGATIVE (NEGATIVE); KETONES,URINE NEGATIVE (NEGATIVE); LEUKOCYTE ESTERASE,URINE TRACE (NEGATIVE); NITRITE,URINE NEGATIVE (NEGATIVE); PROTEIN,URINE NEGATIVE (NEGATIVE); URINE SPECIFIC GRAVITY 1.023
[2020-06-24 21:32] LABS: URINE AMPHETAMINES SCREEN NEGATIVE; URINE BARBITURATES SCREEN NEGATIVE; URINE BENZODIAZEPINES SCREEN NEGATIVE; URINE MARIJUANA (THC) SCREEN NEGATIVE; URINE PHENCYCLIDINE SCREEN NEGATIVE
[2020-06-24 21:46] LABS: URINE COCAINE SCREEN UNCONFIRMED POSITIVE; URINE METHADONE SCREEN UNCONFIRMED POSITIVE
== END 2020-06-24 18:15 | disposition home or self-care (01) ==
LOC: LC 16:45
PROVIDERS: ATTEND Obstetrics & Gynecology
DX: O47.03 False labor before 37 completed weeks of gestation, third trimester (principal); O36.8330 Maternal care for abnormalities of the fetal heart rate or rhythm, third trimester, not applicable or unspecified; Z3A.36 36 weeks gestation of pregnancy
CPT/HCPCS: 59025; 36415; 81005; 80307; 80353; G0480; J3490

== ENCOUNTER 2020-07-10 08:38 | Inpatient (IN) | payer MEDICAID ==
[2020-07-10] MEDS ORDERED: RINGERS SOLUTION,LACTATED 1,000 ML IV PRN (09:05)
[2020-07-10] MEDS ORDERED: RINGERS SOLUTION,LACTATED 1,000 ML IV ONE (09:05)
[2020-07-10 09:23] LABS: APPEARANCE,URINE CLOUDY; BILIRUBIN,URINE SMALL (NEGATIVE); COLOR,URINE AMBER; GLUCOSE, URINE NEGATIVE (NEGATIVE); KETONES,URINE NEGATIVE (NEGATIVE); LEUKOCYTE ESTERASE,URINE LARGE (NEGATIVE); NITRITE,URINE NEGATIVE (NEGATIVE); PROTEIN,URINE 30 mg/dL (NEGATIVE); URINE SPECIFIC GRAVITY 1.026
[2020-07-10 09:39] LABS: URINE AMPHETAMINES SCREEN NEGATIVE; URINE BARBITURATES SCREEN NEGATIVE; URINE BENZODIAZEPINES SCREEN NEGATIVE; URINE MARIJUANA (THC) SCREEN NEGATIVE; URINE PHENCYCLIDINE SCREEN NEGATIVE
[2020-07-10 09:46] LABS: URINE COCAINE SCREEN UNCONFIRMED POSITIVE; URINE METHADONE SCREEN UNCONFIRMED POSITIVE
[2020-07-10 09:59] LABS: ABSOLUTE BASOPHILS # (AUTO) 0.1 10^3/uL (0.0-0.2); ABSOLUTE EOSINOPHILS # (AUTO) 0.1 10^3/uL (0.0-0.6); ABSOLUTE LYMPHOCYTES (AUTO) 2.2 10^3/uL (0.5-4.7); ABSOLUTE MONOCYTES (AUTO) 0.6 10^3/uL (0.1-1.4); ABSOLUTE NEUT (AUTO) 7.5 10^3/uL (1.7-8.2); BASOPHILS % (AUTO) 0.7 % (0-2); EOSINOPHILS % (AUTO) 0.7 % (0-6); HEMATOCRIT 31.3 % (36.0-47.0); HEMOGLOBIN 11.3 g/dL (12.0-15.5); LYMPHOCYTES % (AUTO) 21.4 % (13-45); MEAN CORPUSCULAR HEMOGLOBIN 32.1 pg (27.0-33.4); MEAN CORPUSCULAR VOLUME 89 fl (80-97); MONOCYTES % (AUTO) 5.5 % (3-13); PLATELET COUNT 251 10^3/uL (150-450); RED BLOOD COUNT 3.51 10^6/uL (3.72-5.28); RED CELL DISTRIBUTION WIDTH 13.4 % (11.5-14.0); SEGMENTED NEUTROPHILS % (AUTO) 71.7 % (42-78); TOTAL CELLS COUNTED % (AUTO) 100 %; WHITE BLOOD COUNT 10.4 10^3/uL (4.0-10.5)
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
[2020-07-10] MEDS ORDERED: EPHEDRINE SULFATE INJ 50 MG/1 ML AMPULE ONE (10:51)
[2020-07-10] MEDS ORDERED: FENTANYL/BUPIVACAINE/NS/PF 300 MCG/150 ML RTUINJ EPI ONE (10:51)
[2020-07-10] MEDS ORDERED: ROPIVACAINE HCL 0.2% INJ/PF (2 MG/ML) 20 ML SDV ONE (10:51)
[2020-07-10] MEDS ORDERED: LIDOCAINE 1% INJ-PF (10 MG/ML) 30 ML SDV ONE (11:46)
[2020-07-10] MEDS ORDERED: OXYTOCIN 10 UNIT/ML VIAL ONE (11:46)
[2020-07-10] MEDS ORDERED: OXYTOCIN/0.9 % SODIUM CHLORIDE 30 UNIT/500 ML RTUINJ ONE (11:46)
[2020-07-10] MEDS ORDERED: MISOPROSTOL 0.2 MG TABLET ONE (11:46)
[2020-07-10] MEDS ORDERED: OXYTOCIN/0.9 % SODIUM CHLORIDE 30 UNIT/500 ML RTUINJ IV PRN ×2 (13:14→16:50)
--- NOTE | 2020-07-10 16:26 | Birth Certificate Data ---
Cert Data Datetime Report Generated by CPN: 07/10/2020 16:26 CERTIFICATE DATA Delivery Provider: Sasha Brower CNM (06/20/2020 10:29:Nicky Lebron RN) 47a. Care: No (06/20/2020 10:29:Nicky Lebron RN) 47b. Date of First Visit: 11/28/2019 00:00 (06/20/2020 10:29:Nicky Lebron RN) 47d. Number of Visits: 8 (06/20/2020 10:29:Nicky Lebron RN) 48a. Number of Prev Live Births: 3 (06/20/2020 10:29:Nicky Lebron RN) 48b. Now Livin (06/20/2020 10:29:Maureen Arciniega RN) 48c. Live Births Now : 0 (06/20/2020 10:29:QS system process) 48d. Date of Last Live : 09/27/2017 00:00 (06/20/2020 10:29:Nicky Lebron RN) 48e. Losses: 0 (06/20/2020 10:29:Nicky Lebron RN) RISK FACTORS IN THIS 49a. Diabetes: No (06/20/2020 10:29:Nicky Lebron RN) 49b. Hypertension: No (06/20/2020 10:29:Nicky Lebron RN) 49c. Previous Births: 0 (06/20/2020 10:29:Maureen Arciniega RN) 49d. Stillborns: No (06/20/2020 10:29:Nicky Lebron RN) 49d. IUGR: No (06/20/2020 10:29:Nicky Lebron RN) 49e. Infertility Treatment: No (06/20/2020 10:29:Nicky Lebron RN) 49f. Previous Cesareans: 0 (06/20/2020 10:29:Nicky Lebron RN) Mother's Height 50b. Height Inches: 63 (07/10/2020 09:13:QS system process) Mother's Weight 51a. Pre- Weight (lbs): 152 (06/20/2020 10:29:Nicky Lebron RN) 51b. Weight at Delivery (lbs): 154 (07/10/2020 09:13:QS system process) Infections Present/Treated 53a. Gonorrhea: No (06/20/2020 10:29:Nicky Lebron RN) Results this Hospital Visit : Negative (06/20/2020 10:29:Nicky Lebron RN) 53b. Syphilis: No (06/20/2020 10:29:Nicky Lebron RN) Results this Hospital Visit: NONREACTIVE (07/10/2020 09:48:QS system process) 53c. Chlamydia: No (06/20/2020 10:29:Nicky Lebron RN) Results this Hospital Visit: Negative (06/20/2020 10:29:Nicky Lebron RN) 53d. Hepatitis B: No (06/20/2020 10:29:Nicky Lebron RN) Results this Hospital Visit: Negative (06/20/2020 10:29:Nicky Lebron RN) 53e. Hepatitis C: Positive (06/20/2020 10:29:Nicky Lebron RN) 53h. Mother Tested for HBsAG: Yes (06/20/2020 10::Nicky Lebron RN) 53i. Date Tested: 01/17/2020 00:00 (06/20/2020 10::Nicky Lebron RN) 53j. Test Result: Negative (06/20/2020 10::Nicky Lebron RN) Obstetric Procedures 54a, b, c. Obstetric Procedures: Ultrasound; NST (06/20/2020 10:29:Nicky Lebron RN) Cigarette Smoking Cigarette Smoking: Current Everyday Smoker. [id number] (06/20/2020 10:29:Nicky Lebron RN) 55a. 3 Months Before Preg - Ci (06/20/2020 10:29:Nicky Lebron RN) 55a. Packs: 1 (06/20/2020 10:29:Nicky Lebron RN) 55b. 1st Trimester of Preg- Ci (06/20/2020 10:29:Nicky Lebron RN) 55b. Packs: 1 (06/20/2020 10:29:Nicky Lebron RN) 55c. 2nd Trimester of Preg- Ci (06/20/2020 10:29:Nicky Lebron RN) 55c. Packs: 1 (06/20/2020 10:29:Nicky Lebron RN) 55d. 3rd Trimester of Preg- Ci (06/20/2020 10:29:Nicky Lebron RN) 55d. Packs: 1 (06/20/2020 10:29:Nicky Lebron RN) Onset of Labor 56a. PROM >12 Hrs: 1.95 (06/20/2020 10:29:QS system process) 56b. Precipitous Labor <3 Hrs: 8 (06/20/2020 10:29:QS system process) 56c. Prolonged Labor > 20 Hrs: 8 (06/20/2020 10:29:QS system process) 57a. Induction of Labor: Augmentation (06/20/2020 10:29:Nicky Lebron RN) 57c. Non-Vertex Presentation A: Vertex (06/20/2020 10:29:Nicky Lebron RN) 57d. Steroids - Lung Mat: None (06/20/2020 10:29:Nicky Lebron RN) 57d. Steroids - Lung Mat: Not Applicable (06/20/2020 10:29:Nicky Lebron RN) 57f. Mat [place] or Temp >100.4: 98.3 (06/20/2020 10:29:Nicky Lebron RN) 57g. Moderate/Heavy Meconium: Moderate Meconium (07/10/2020 12:02:Nicky Lebron RN) 57h. Intolerance of Labor: N/A (06/20/2020 10:29:Nicky Lebron RN) : N/A (06/20/2020 10:29:Nicky Lebron RN) 57i. Epidural/Spinal Anesthesia: Epidural (06/20/2020 10:29:Nicky Lebron RN) Method of Delivery 58a. Forceps - Unsuccessful A: N/A (06/20/2020 10:29:Nicky Lebron RN) 58b. Vacuum - Unsuccessful A: N/A (06/20/2020 10:29:Nicky Lebron RN) 58c. Presentation at 58c. Presentation at - A : Vertex (06/20/2020 10:29:Nicky Lebron RN) 58c. Presentation at - A : N/A (06/20/2020 10:29:Nicky Lebron RN) 58c. Presentation at - A : Cephalic (07/10/2020 12:17:Keyona Liu, [facility]) Final Route and Method of Del 58d. Baby A Route/Delivery: Vaginal (06/20/2020 10:29:Nicky Lebron RN) 58e. Trial of Labor Attempted: No (06/20/2020 10:29:Nicky Lebron RN) 58e. Trial of Labor Attempted A: N/A (06/20/2020 10:29:Nicky Lebron RN) 58e. Trial of Labor Attempted B: N/A (06/20/2020 10:29:Nicky Lebron RN) Maternal Morbidity 59b. 3rd or 4th Degree Lacs: None (06/20/2020 10:29:Nicky Lebron, RN) Birthweight Baby A: 4194 (06/20/2020 10:29:Nicky Lebron RN) 60a. Pounds : 9 (06/20/2020 10:29:QS system process) 60b. Ounces: 4 (06/20/2020 10:29:QS system process) 61. GA at Delivery Baby A: 39.0 (06/20/2020 10:29:Nicky Lebron RN) : Full Term- 39- 40.6 Weeks (06/20/2020 10:29:QS system process) 62a. 5 Minute Baby A: 9 (06/20/2020 10:29:QS system process)
--- NOTE | 2020-07-10 16:26 | Delivery Summary ---
Del Sum A-C Datetime Report Generated by CPN: 07/10/2020 16:26 DELIVERY PERSONNEL DELIVERY PERSONNEL: [id number] Delivery Doctor:: Sasha Brower CNM Nurse Bible Reader Certified:: Sasha Brower CNM POWERHOUSE MECHANIC APPRENTICE:: Rhonda Lin CRNA Labor and Delivery Nurse:: Nicky Lebron RNtaker off hemp fiber Nurse:: PATRIC Campuzano Nursery Nurse:: Namita Ortez RN MATERNAL INFORMATION Delivery Anesthesia: Epidural Medications After Delivery: Pitocin Bolus-Please Comment Meds After Delivery Comment: Pitocin 30 units in 500 ml nss Delivery QBL: 150 Maternal Complications: Other Other Maternal Complications: cocaine use this Provider Comments: SVDVM over intact perineum with thick meconium. OA to MARISA with loose nuchal cord reduced easily. Shoulders and body delivered easiliy. Placed on maternal abd, mouth and nose bulb suctioned. Cord clamped x 2 after 2 min, cut per pt's partner. Cord blood collected and placenta delivered spont intact. Bleeding stabilized, mother and infant stable. Nursery in with delivery d/t drug abuse/mec, assessing baby. Apgars 8,9. LABOR SUMMARY EDC: 07/17/2020 00:00 No. Babies in Womb: 1 Attempted: No Labor Anesthesia: Epidural LABOR INFORMATION Reason for Induction: Not Applicable Onset of Labor: 07/10/2020 06:00 Complete Dilatation: 07/10/2020 13:53 Oxytocin: Augmentation Group B Beta Strep: Negative Antibiotics # of Doses: 0 Name of Antibiotic Given: N/A Steroids Given: None Reason Steroids Not Administered: Not Applicable MEMBRANES Membranes Rupture Method: Artificial Rupture of Membranes: 07/10/2020 12:02 Length of Rupture (hr): 1.95 Amniotic Fluid Color: Moderate Meconium Amniotic Fluid Amount: Moderate Amniotic Fluid Odor: Normal STAGES OF LABOR Stage 1 hr: 7 Stage 1 min: 53 Stage 2 hr: 0 Stage 2 min: 6 Stage 3 hr: 0 Stage 3 min: 8 Total Time in Labor hr: 8 Total Time in Labor min: 7 VAGINAL DELIVERY Episiotomy: None Laceration #1: None Laceration Extension #1: N/A Laceration Repair: Not Applicable Sponge Count Correct: N/A Sharps Count Correct: N/A CSECTION DELIVERY Primary Indication: N/A Secondary Indication: N/A CSection Incidence: N/A Labor: N/A Elective: N/A CSection Incision: N/A BABY A INFORMATION Delivery Date/Time: 07/10/2020 13:59 Method of Delivery: Vaginal Nurse Controlled Delivery: No Born in Route : No : N/A Forceps: N/A Vacuum Extraction: N/A Shoulder Dystocia : No PRESENTATION/POSITION BABY A Presentation: Cephalic Cephalic Presentation: Vertex Vertex Position: Left Occipital Anterior Breech Presentation: N/A PLACENTA INFORMATION BABY A Placenta Delivery Time : 07/10/2020 14:07 Placenta Method of Delivery: Spontaneous Placenta Status: Delivered SCORES BABY A Heart Rate 1 min: >100 bpm Resp Effort 1 min: Good Cry Reflex Irritability 1 min: Cough or Sneeze or Pulls Away Muscle Tone 1 min: Active Motion Color 1 min: Blue/Pale Resuscitation Effort 1 min: Tactile Stimulation SCORE 1 MIN: 8 Heart Rate 5 min: >100 bpm Resp Effort 5 min: Good Cry Reflex Irritability 5 min: Cough or Sneeze or Pulls Away Muscle Tone 5 min: Active Motion Color 5 min: Body [place], Extremities Blue Resuscitation Effort 5 min: N/A SCORE 5 MIN: 9 Resuscitation Effort 10 min: N/A INFANT INFORMATION BABY A Gestational Age at Delivery: 39.0 Gestational Status: Full Term- 39- 40.6 Weeks Outcome : Liveborn Condition : Stable Sex: Male WEIGHT/LENGTH BABY A Birthweight (gm): 4194 Infant Weight (lb): 9 Weight (oz): 4 Length (in): 21.00 Length (cm): 53.34 CORD INFORMATION BABY A No. Cord Vessels: 3 Nuchal Cord : Around Neck x1, Loose Cord Blood Taken: Yes-For Eval (Mom's Blood Type - or O+) Suction: None ASSESSMENT BABY A Infant Complications: Meconium Corrugated Sheet Material Sheeter/ALS Called : No Infant Care By: A Ortez RN BABY B INFORMATION : N/A SIGNATURES Assignment: Myriam Parker MD Signature: with User ID: [email or web address] : with User ID: [email or web address] : I was personally available for consultation and serving as supervising physician for the MLP.
[2020-07-10] MEDS ORDERED: PSEUDOEPHEDRINE HCL 30 MG TABLET PO PRN (16:50)
[2020-07-10] MEDS ORDERED: FAMOTIDINE 20 MG TABLET PO PRN (16:50)
[2020-07-10] MEDS ORDERED: DIPH/PERTUSS(ACELL)/TETANUS VAC/PF 0.5 ML SYR (>=10YO) IM PRN (16:50)
[2020-07-10] MEDS ORDERED: DIPHENHYDRAMINE HCL 25 MG CAPSULE PO PRN (16:50)
[2020-07-10] MEDS ORDERED: BENZOCAINE/MENTHOL AEROSOL SPRAY 56 ML TOP PRN (16:50)
[2020-07-10] MEDS ORDERED: MAG HYDROX/AL HYDROX/SIMETH SUSP 30 ML UDCUP PO PRN (16:50)
[2020-07-10] MEDS ORDERED: GLYCERIN/WITCH HAZEL LEAF 1 EACH MED..WIPE TP PRN (16:50)
[2020-07-10] MEDS ORDERED: ACETAMINOPHEN 650 MG SUPP.RECT PR PRN (16:50)
[2020-07-10] MEDS ORDERED: MEASLES,MUMPS&RUBELLA VACC/PF 0.5 ML VIAL SUBCUT PRN (16:50)
[2020-07-10] MEDS ORDERED: VARICELLA VACC/PF (1350 UNIT/0.5 ML) 0.5 ML VIAL SUBCUT PRN (16:50)
[2020-07-10] MEDS ORDERED: DIBUCAINE 1% OINTMENT 28 GM TP PRN (16:50)
[2020-07-10] MEDS ORDERED: ZOLPIDEM TARTRATE 5 MG TABLET PO PRN (16:50)
[2020-07-10] MEDS ORDERED: MAGNESIUM HYDROXIDE SUSP 30 ML UDCUP PO PRN (16:50)
[2020-07-10] MEDS ORDERED: METHADONE HCL 10 MG TABLET PO SCH (18:00)
[2020-07-10] MEDS: BUSPIRONE HCL 10 MG TABLET PO SCH (18:25)
[2020-07-10] MEDS: DOCUSATE SODIUM 100 MG CAPSULE PO SCH (18:25)
[2020-07-10] MEDS: FERROUS SULFATE 325 MG TABLET PO SCH (18:25)
[2020-07-10] MEDS: ACETAMINOPHEN 325 MG TABLET PO PRN (18:37)
[2020-07-10] MEDS: IBUPROFEN 800 MG TABLET PO SCH (22:24)
[2020-07-11] MEDS: IBUPROFEN 800 MG TABLET PO SCH ×3 (05:42→21:25)
[2020-07-11 06:57] LABS: HEMATOCRIT 30.7 % (36.0-47.0); HEMOGLOBIN 10.6 g/dL (12.0-15.5); MEAN CORPUSCULAR HGB CONC 34.5 g/dL (32.0-36.0); MEAN CORPUSCULAR VOLUME 90 fl (80-97); PLATELET COUNT 264 10^3/uL (150-450); RED BLOOD COUNT 3.42 10^6/uL (3.72-5.28); RED CELL DISTRIBUTION WIDTH 13.6 % (11.5-14.0); WHITE BLOOD COUNT 11.5 10^3/uL (4.0-10.5)
[2020-07-11] MEDS: FERROUS SULFATE 325 MG TABLET PO SCH ×2 (10:05→17:43)
[2020-07-11] MEDS: PRENATAL VITAMIN W DHA CAPSULE PO SCH (10:05)
[2020-07-11] MEDS: DOCUSATE SODIUM 100 MG CAPSULE PO SCH ×2 (10:05→17:43)
[2020-07-11] MEDS: SENNOSIDES/DOCUSATE 8.6-50 MG 1 EACH TABLET PO SCH (10:05)
[2020-07-11] MEDS: METHADONE HCL 10 MG TABLET PO SCH (10:06)
[2020-07-11] MEDS: ESCITALOPRAM OXALATE 10 MG TABLET PO SCH (10:08)
[2020-07-11] MEDS: BUSPIRONE HCL 10 MG TABLET PO SCH ×2 (10:08→17:43)
--- NOTE | 2020-07-11 11:49 | PDOC PROGRESS REPORT ---
Subjective-OB Progress Note for:: 07/11/20 Subjective: reports bleeding slowing, pain controlled with current meds. denies needs Physical Exam (OB) Vital Signs: Temp Pulse Resp BP Pulse Ox 98.0 F 65 16 100/59 L 99 07/11/20 08:07 07/11/20 08:07 07/11/20 08:07 07/11/20 08:07 07/11/20 08:07 Intake & Output 07/10/20 07/11/20 07/12/20 06:59 06:59 06:59 Intake Total 140 Output Total 150 Balance -150 140 Weight 69.8 kg - Maternal Morbidity 59. Maternal Morbidity (serious complications experinced by the mother associated with labor and delivery: None of the above - Abdomen Description: Soft, Round Hernia Present: No Fundal Description: Firm, Midline Fundal Height: u/u - u/2 - Abdominal Distension: No distension Tenderness: Nontender - Extremities Lower extremities: Shanthi's sign - neg Calf: Normal, Nontender Objective-Diagnostic Laboratory: 07/11/20 06:18 07/11/20 06:18 WBC 11.5 H RBC 3.42 L Hgb 10.6 L Hct 30.7 L MCV 90 MCH 31.0 MCHC 34.5 RDW 13.6 Plt Count 264 Assessment and Plan(PN) - Assessment and Plan (1) Cocaine abuse Is this a current diagnosis for this admission?: Yes (2) Methadone dependence Is this a current diagnosis for this admission?: Yes (3) Normal vaginal delivery Is this a current diagnosis for this admission?: Yes (4) PCR positive for hepatitis C virus Is this a current diagnosis for this admission?: Yes (5) Smoker Is this a current diagnosis for this admission?: Yes - Time Spent with Patient Time with patient: Less than 15 minutes Medications reviewed and adjusted accordingly: Yes - Disposition Anticipated Discharge Disposition: Home, Self Care Anticipated Discharge Timeframe: within 24 hours
[2020-07-11] MEDS: ACETAMINOPHEN 325 MG TABLET PO PRN (20:07)
[2020-07-12] MEDS: IBUPROFEN 800 MG TABLET PO SCH ×3 (06:08→17:06)
[2020-07-12 09:12] VITALS: BP 112/68
[2020-07-12] MEDS ORDERED: MEDROXYPROGESTERONE ACET INJ 150 MG/1 ML VIAL IM ONE (10:45)
--- NOTE | 2020-07-12 10:48 | PDOC DISCHARGE SUMMARY ---
Impression - Admit/DC Date/PCP Admission Date/Primary Care Provider: 07/10/20 09:01 JULIUS RALPH MD Discharge Date: 07/12/20 - Discharge Diagnosis (1) Cocaine abuse Is this a current diagnosis for this admission?: Yes (2) Methadone dependence Is this a current diagnosis for this admission?: Yes (3) Normal vaginal delivery Is this a current diagnosis for this admission?: Yes (4) PCR positive for hepatitis C virus Is this a current diagnosis for this admission?: Yes (5) Smoker Is this a current diagnosis for this admission?: Yes - Additional Information Discharge Diet: Regular Discharge Activity: Balance Activity w/Rest, Pelvic Rest Referrals: JULIUS RALPH MD [Primary Care Provider] - Prescriptions: Ibuprofen [Motrin 800 mg Tablet] 800 mg PO Q8HP PRN #60 tablet PRN Reason: Home Medications: Methadone HCl [Dolophine 10 mg Tablet] 115 mg PO DAILY 09/12/15 Vit Calc,Iron,Folic [ Vitamins] 1 each PO DAILY #30 tablet 02/09/17 Buspirone HCl [Buspar 10 mg Tablet] 15 mg PO BID 06/20/20 Escitalopram Oxalate [Lexapro 10 mg Tablet] 1 tab PO DAILY 06/20/20 Ibuprofen [Motrin 800 mg Tablet] 800 mg PO Q8HP PRN #60 tablet 07/12/20 Hospital Course 59. Maternal Morbidity (serious complications experinced by the mother associated with labor and delivery: None of the above Results Laboratory Results: WBC 11.5 10^3/uL (4.0-10.5) H 07/11/20 06:18 RBC 3.42 10^6/uL (3.72-5.28) L 07/11/20 06:18 Hgb 10.6 g/dL (12.0-15.5) L 07/11/20 06:18 Hct 30.7 % (36.0-47.0) L 07/11/20 06:18 MCV 90 fl (80-97) 07/11/20 06:18 MCH 31.0 pg (27.0-33.4) 07/11/20 06:18 MCHC 34.5 g/dL (32.0-36.0) 07/11/20 06:18 RDW 13.6 % (11.5-14.0) 07/11/20 06:18 Plt Count 264 10^3/uL (150-450) 07/11/20 06:18 Lymph % (Auto) 21.4 % (13-45) 07/10/20 09:48 [place]if[place] % (Auto) 5.5 % (3-13) 07/10/20 09:48 Eos % (Auto) 0.7 % (0-6) 07/10/20 09:48 Baso % (Auto) 0.7 % (0-2) 07/10/20 09:48 Absolute Neuts (auto) 7.5 10^3/uL (1.7-8.2) 07/10/20 09:48 Absolute Lymphs (auto) 2.2 10^3/uL (0.5-4.7) 07/10/20 09:48 Absolute Monos (auto) 0.6 10^3/uL (0.1-1.4) 07/10/20 09:48 Absolute Eos (auto) 0.1 10^3/uL (0.0-0.6) 07/10/20 09:48 Absolute Basos (auto) 0.1 10^3/uL (0.0-0.2) 07/10/20 09:48 Seg Neutrophils % 71.7 % (42-78) 07/10/20 09:48 Urine Color JUAN APBLO 07/10/20 08:45 Urine Appearance CLOUDY 07/10/20 08:45 Urine pH 6.0 (5.0-9.0) 07/10/20 08:45 Ur Specific [place] 1.026 07/10/20 08:45 Urine Protein 30 mg/dL (NEGATIVE) H 07/10/20 08:45 Urine Glucose (UA) NEGATIVE mg/dL (NEGATIVE) 07/10/20 08:45 Urine Ketones NEGATIVE mg/dL (NEGATIVE) 07/10/20 08:45 Urine Blood NEGATIVE (NEGATIVE) 07/10/20 08:45 Urine Nitrite NEGATIVE (NEGATIVE) 07/10/20 08:45 Urine Bilirubin SMALL (NEGATIVE) H 07/10/20 08:45 Urine Urobilinogen 4.0 mg/dL (<2.0) H 07/10/20 08:45 Ur Leukocyte Esterase LARGE (NEGATIVE) H 07/10/20 08:45 Urine Ascorbic Acid NEGATIVE (NEGATIVE) 07/10/20 08:45 Urine Opiates Screen UNCONFIRMED POSITIVE 07/10/20 08:45 Urine Methadone Screen UNCONFIRMED POSITIVE 07/10/20 08:45 Ur Barbiturates Screen NEGATIVE 07/10/20 08:45 Ur Phencyclidine Scrn NEGATIVE 07/10/20 08:45 Ur Amphetamines Screen NEGATIVE 07/10/20 08:45 U Benzodiazepines Scrn NEGATIVE 07/10/20 08:45 Urine Cocaine Screen UNCONFIRMED POSITIVE 07/10/20 08:45 U Marijuana (THC) Screen NEGATIVE 07/10/20 08:45 RPR NONREACTIVE (NONREACTIVE) 07/10/20 09:48 Blood Type O POSITIVE 07/10/20 09:48 Antibody Screen NEGATIVE 07/10/20 09:48 Plan Health Concerns: needs follow up at methadone clinic Plan of Treatment: follow up in 4 weeks at [facility] for post check
[2020-07-12] MEDS: METHADONE HCL 10 MG TABLET PO SCH (11:05)
[2020-07-12] MEDS: ESCITALOPRAM OXALATE 10 MG TABLET PO SCH (11:06)
[2020-07-12] MEDS: BUSPIRONE HCL 10 MG TABLET PO SCH (11:06)
[2020-07-12] MEDS: SENNOSIDES/DOCUSATE 8.6-50 MG 1 EACH TABLET PO SCH (11:07)
[2020-07-12] MEDS: DOCUSATE SODIUM 100 MG CAPSULE PO SCH (11:07)
[2020-07-12] MEDS: FERROUS SULFATE 325 MG TABLET PO SCH (11:07)
[2020-07-12] MEDS: PRENATAL VITAMIN W DHA CAPSULE PO SCH (11:13)
[2020-07-14 10:43] LABS: COCAINE METABOLITE CONFIRM UR Positive (.); METHADONE CONFIRMATION URINE Positive (.)
== END 2020-07-12 17:00 | disposition home or self-care (01) | DRG 806 ==
LOC: LC 08:38 → LR 09:01 → 2S 16:45
PROVIDERS: ADMIT Obstetrics & Gynecology; ATTEND Obstetrics & Gynecology
PROC: 10E0XZZ Delivery of Products of Conception, External Approach (ICD-10-PCS; principal; 2020-07-10)
PROC: 10907ZC Drainage of Amniotic Fluid, Therapeutic from Products of Conception, Via Natural or Artificial Opening (ICD-10-PCS; 2020-07-10)
DX: O99.324 Drug use complicating childbirth (principal); F11.20 Opioid dependence, uncomplicated; Z37.0 Single live birth; O98.42 Viral hepatitis complicating childbirth; Z20.822 Contact with and (suspected) exposure to COVID-19; F14.10 Cocaine abuse, uncomplicated; O99.334 Smoking (tobacco) complicating childbirth; F17.210 Nicotine dependence, cigarettes, uncomplicated; O99.344 Other mental disorders complicating childbirth; B18.2 Chronic viral hepatitis C; F32.9 Major depressive disorder, single episode, unspecified; O69.81X0 Labor and delivery complicated by cord around neck, without compression, not applicable or unspecified; Z3A.39 39 weeks gestation of pregnancy
CPT/HCPCS: 1967; 36415; 80307; 80353; 80361; 81005; 85025; 85027; 86592; 86850; 86900; 86901; 88307; G0480; J2590; J2795; J3010; J3490